=== PATIENT | female | born 1995 | race Caucasian/White ===

== ENCOUNTER 2017-03-02 22:04 | Emergency (ER) | payer OTHER ==
[2017-03-02] MEDS ORDERED: Morphine 4 MG/ML VIAL ONE (22:46)
[2017-03-02 23:08] LABS: BASO # 0.1 K/uL (0.0-0.2); BASO % 0.6 % (0.0-2.0); EOS # 0.3 K/uL (0.0-0.7); EOS % 3.4 % (0.0-4.0); HEMATOCRIT 35.2 % (34.0-47.0); LYMPH # 2.6 K/uL (1.0-4.3); LYMPH % 25.7 % (20.0-40.0); MEAN CORPUSCULAR HEMOGLOBIN 28.7 pg (27.0-31.0); MEAN CORPUSCULAR HGB CONC 33.4 g/dL (33.0-37.0); MEAN PLATELET VOLUME 10.9 fL (7.2-11.7); MONO # 0.7 K/uL (0.0-0.8); MONO % 6.5 % (0.0-10.0); RED CELL DISTRIBUTION WIDTH 14.2 % (11.5-14.5)
[2017-03-02 23:13] LABS: CHLORIDE 98 mmol/L (98-107)
[2017-03-02 23:14] LABS: SODIUM 137 mmol/L (132-148)
[2017-03-02 23:17] LABS: ALB/GLOB RATIO 1.3 (1.0-2.1); ALKALINE PHOSPHATASE 61 U/L (38-126); ALT/SGPT 71 U/L (9-52); AST/SGOT 33 U/L (14-36); BILIRUBIN,TOTAL 0.5 mg/dL (0.2-1.3); BLOOD UREA NITROGEN 16 mg/dL (7-17); CALCIUM 9.5 mg/dl (8.6-10.4); CARBON DIOXIDE 25 mmol/L (22-30); GFR AFRICAN-AMERICAN > 60; GLUCOSE,RANDOM 101 mg/dL (65-105); TOTAL PROTEIN 7.6 g/dL (6.3-8.3)
[2017-03-03 00:04] VITALS: BP 108/70; PULSE 63; RESP 18; TEMP 98; O2SAT 100
[2017-03-03] MEDS ORDERED: Iohexol 350mg/ml 100 ML ONE (00:12)
--- NOTE | 2017-03-03 00:47 | CT ---
EXAM: CT Orbits, Sella, Posterior Fossa or Auditory System Intravenous Contrast CLINICAL HISTORY: 21 years old, female; Pain; Jaw pain and ocular pain; Left; Additional info: Left ear pain, pain to the left neck, mastoid tendern TECHNIQUE: Axial computed tomography images of the orbits, sella, posterior fossa or auditory system with intravenous contrast. This CT exam was performed using one or more of the following dose reduction techniques: automated exposure control, adjustment of the mA and/or kV according to patient size, and/or use of iterative reconstruction technique. Coronal and sagittal reformatted images were created and reviewed. CONTRAST: 100 mL of omnipaque 350 administered intravenously. COMPARISON: No relevant prior studies available. FINDINGS: Sella: Unremarkable. Mastoid air cells: No mastoid effusion. Auditory system: Mild soft tissue thickening along LEFT external auditory canal. Minimal stranding within surrounding soft tissues. Apparent small peripherally enhancing collection along LEFT external auditory canal, approximately 0.5 x 0.5 x 0.6 cm (series 2, axial image 4). No middle ear fluid. Bones/joints: No acute fracture. Soft tissues: Unremarkable. Orbits: Unremarkable as visualized. Sinuses: Moderate to extensive thickening of ethmoid sinuses. Scattered minimal mucosal thickening of remaining sinuses. IMPRESSION: 1. Probable LEFT otitis externa with possible small abscess. 2. Sinus disease. 3. Incidental/non-acute findings are described above.
--- NOTE | 2017-03-03 01:06 | C.PDOC ---
History Of Present Illness 21 year old female who presents to the ER with a complaint of left sided ear pain associated with a subjective fever for the past 4 days. Patient was seen by PMD 2 days ago and give Rx for augmentin; however, she states symptoms have worsened and now has yellow drainage from her left ear. Denies fever or difficulty hearing. Time Seen by Provider: 03/02/17 22:20 Chief Complaint (Nursing): ENT Problem History Per: Patient History/Exam Limitations: None Onset/Duration Of Symptoms: Days Current Symptoms Are (Timing): Still Present Quality (Ear): Pain W/Touch, Discharge Symptoms Have Been: Continuous Anticoagulant/Antiplatlet Use?: No Past Medical History Reviewed: Historical Data, Nursing Documentation, Vital Signs Vital Signs: Last Vital Signs Temp 98 F 03/03/17 00:03 Pulse 63 03/03/17 00:03 Resp 18 03/03/17 00:03 BP 108/70 03/03/17 00:03 Pulse Ox 100 03/03/17 05:43 - Medical History PMH: Anemia Surgical History: Appendectomy Family History: States: Unknown Family Hx - Social History Hx Alcohol Use: No Hx Substance Use: No - Immunization History Hx Tetanus Toxoid Vaccination: Yes Hx Influenza Vaccination: Yes Hx Pneumococcal Vaccination: Yes Review Of Systems Constitutional: Negative for: Fever, Chills ENT: Positive for: Ear Pain, Ear Discharge Physical Exam - Physical Exam Appears: Non-toxic, No Acute Distress Skin: Normal Color, Warm, Dry, No Rash Head: Atraumatic, Normacephalic, Tenderness (Left sided mastoid tenderness) Eye(s): bilateral: Normal Inspection, PERRL, EOMI Ear(s): Left: Other (External canal swelling with drainage, TM not visualized.) , Right: Normal Nose: Normal, No Flaring Oral Mucosa: Moist Tongue: Normal Appearing Lips: Normal Appearing Throat: Normal, No Erythema, No Exudate Neck: Normal ROM, No Midline Cervical Tenderness, No Paracervical Tenderness, Supple Chest: Symmetrical, No Tenderness Cardiovascular: Rhythm Regular, No Friction Rub, No Murmur Respiratory: Normal Breath Sounds, No Rales, No Rhonchi, No Wheezing Gastrointestinal/Abdominal: Soft, No Tenderness Extremity: Normal ROM, No Swelling Neurological/Psych: Oriented x3, Normal Speech, Normal Cognition, Normal Motor Gait: Steady ED Course And Treatment - Laboratory Results Result Diagrams: 03/02/17 23:01 03/02/17 23:01 O2 Sat by Pulse Oximetry: 100 (Room air) Pulse Ox Interpretation: Normal - CT Scan/US CT Orbits, Sella, Posterior Fossa Other Rad Studies (CT/US): Read By Radiologist, Radiology Report Reviewed CT/US Interpretation: IMPRESSION: 1. Probable LEFT otitis externa with possible small abscess. 2. Sinus disease. 3. Incidental/non-acute findings are described above. Medical Decision Making Medical Decision Making: Plan: * Morphine * CT scan of IAC as there is mild mastoid tenderness CT scan shows signs of otitis externa and no mastoiditis. Patient was instructed to continue taking the augmentin and was placed on Otic antibiotic drops. On reevaluation, patients pain has much improved; will discharge with Rx and advise to follow up with PMD. Disposition - Disposition Referrals: Rio Márquez MD [Staff Provider] - Disposition: HOME/ ROUTINE Disposition Time: 01:04 Condition: FAIR Additional Instructions: Follow up with the medical doctor within 1-2 days without fail. Return if worsened. Prescriptions: Ciprofloxacin/Dexamethasone [Ciprodex 0.3%-0.1% 7.5 Ml] 4 drop AD BID #1 bottle oxyCODONE/Acetaminophen [Percocet 5/325 mg Tab] 1 tab PO QID PRN #10 tab PRN Reason: Pain Instructions: Otitis Externa (ED) Forms: [facility] (Salvadorean) - Clinical Impression Clinical Impression: Otitis externa - Scribe Statement The provider has reviewed the documentation as recorded by the Laurenibmanjinder Gomez All medical record entries made by the Laurenibmanjinder were at my direction and personally dictated by me. I have reviewed the chart and agree that the record accurately reflects my personal performance of the history, physical exam, medical decision making, and the department course for this patient. I have also personally directed, reviewed, and agree with the discharge instructions and disposition.
== END 2017-03-03 01:10 | disposition home or self-care (01) ==
LOC: C.ER 22:04
DX: H60.92 Unspecified otitis externa, left ear (principal)
CPT/HCPCS: 70481; 80053; 85025; 96374; 99283; J2270; Q9967

== ENCOUNTER 2017-10-21 00:44 | Emergency (ER) | payer MEDICAID, OTHER ==
[2017-10-21 00:47] VITALS: TEMP 98.6
[2017-10-21] MEDS ORDERED: Morphine 4 MG/ML VIAL ONE (00:50)
--- NOTE | 2017-10-21 00:57 | C.PDOC ---
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 Patient reports she had similar pain 3 years ago and has not had any since. Patient states she was awake and pain did not wake her from sleep. Patient denies vomit , diarrhea, back pain. Time Seen by Provider: 10/21/17 00:56 Chief Complaint (Nursing): Abdominal Pain History Per: Patient History/Exam Limitations: no limitations Onset/Duration Of Symptoms: Hrs Current Symptoms Are (Timing): Still Present Severity: Moderate Location Of Pain/Discomfort: Diffuse Radiation Of Pain To:: None Quality Of Discomfort: "Pain" Associated Symptoms: Nausea Exacerbating Factors: None Alleviating Factors: None Recent travel outside of the [place]: No Additional History Per: Patient Abnormal Vaginal Bleeding: No Past Medical History Reviewed: Historical Data, Nursing Documentation, Vital Signs Vital Signs: Last Vital Signs Temp 98.6 F 10/21/17 00:47 Pulse 81 10/21/17 04:11 Resp 17 10/21/17 04:11 BP 136/74 10/21/17 04:11 Pulse Ox 100 10/21/17 05:22 - Medical History PMH: Anemia, Asthma, Pneumonia Surgical History: Appendectomy Family History: States: Unknown Family Hx - Social History Hx Alcohol Use: No Hx Substance Use: No - Immunization History Hx Tetanus Toxoid Vaccination: Yes Hx Influenza Vaccination: Yes Hx Pneumococcal Vaccination: Yes Review Of Systems Constitutional: Negative for: Fever, Chills Cardiovascular: Negative for: Chest Pain Respiratory: Negative for: Cough, Shortness of Breath Gastrointestinal: Positive for: Nausea, Abdominal Pain. Negative for: Vomiting Skin: Negative for: Rash Neurological: Negative for: Weakness, Numbness Physical Exam - Physical Exam Appears: Non-toxic, In Acute Distress, Other (groaning, moaning ) Skin: Normal Color, Warm, Dry Head: Atraumatic, Normacephalic Eye(s): bilateral: Normal Inspection Nose: No Discharge Oral Mucosa: Moist Neck: Normal ROM, Supple Chest: Symmetrical Cardiovascular: Rhythm Regular, No Murmur Respiratory: Normal Breath Sounds, No Rales, No Rhonchi, No Wheezing Gastrointestinal/Abdominal: Bowel Sounds (active), Soft, Tenderness (Diffuse upper abdomen), Guarding (epigastric area), No Rebound Back: No CVA Tenderness Extremity: Normal ROM, No Tenderness, No Swelling Pulses: Left Dorsalis Pedis: Normal, Right Dorsalis Pedis: Normal Neurological/Psych: Oriented x3 Gait: Steady ED Course And Treatment - Laboratory Results Result Diagrams: 10/21/17 01:08 10/21/17 01:08 O2 Sat by Pulse Oximetry: 100 (On RA) Pulse Ox Interpretation: Normal - CT Scan/US Abdomen US Other Rad Studies (CT/US): Read By Radiologist, Radiology Report Reviewed CT/US Interpretation: EXAM: US Abdomen Limited, Right Upper Quadrant. EXAM DATE/TIME: 10/21/2017 1:18 AM. CLINICAL HISTORY: 22 years old, female; Pain; Abdominal pain; Epigastric; Additional info: Ruq pain. TECHNIQUE: Real-time ultrasound of the right upper quadrant with image documentation. COMPARISON: No relevant prior studies available. FINDINGS: Gallbladder: Contains multiple small shadowing gallstones. No significant gallbladder wall thickening. noted. No evidence of pericholecystic fluid. Reportedly negative sonographic Christy's sign. Common bile duct: Does not appear abnormally dilated, measuring less than 6 mm in diameter. Liver: Mildly enlarged, measuring 18.7 cm in length. Otherwise within normal limits in appearance. Normal flow seen in the main portal vein on color and Doppler imaging. Pancreas: Imaged portions appear unremarkable. Pancreatic tail is obscured by bowel gas. Right kidney: Within normal limits in appearance. Measures 11.3 cm in length. No evidence of. hydronephrosis.IMPRESSION: Gallstones, with no evidence of acute cholecystitis. Mild hepatomegaly. Otherwise negative exam. See above for remaining findings. Thank you for allowing us to participate in the care of your patient. Dictated and Authenticated by: Nery Ambriz MD. 10/21/2017 3: 38 AM Eastern Time ([place] & [place]) Medical Decision Making Medical Decision Making: Impression: gastritis, GERD Plan: * Labs * Dilaudid 1 mg IVP * Morphine 4 mg IVP * UA * Abdomen US Disposition - Disposition Referrals: Jersey Diaz MD [Staff Provider] - Lian Russo MD [Family Provider] - Disposition: HOME/ ROUTINE Disposition Time: 05:23 Condition: FAIR Prescriptions: oxyCODONE/Acetaminophen [Percocet 5/325 mg Tab] 1 ea PO QID PRN #12 tab PRN Reason: Pain, Mild (1-3) Instructions: Gallstones Forms: [facility] (Maori) Print Language: NAMIBIAN - Clinical Impression Clinical Impression: Biliary colic - Scribe Statement The provider has reviewed the documentation as recorded by the Scribe Lyndon Bagley All medical record entries made by the Scribe were at my direction and personally dictated by me. I have reviewed the chart and agree that the record accurately reflects my personal performance of the history, physical exam, medical decision making, and the department course for this patient. I have also personally directed, reviewed, and agree with the discharge instructions and disposition.
[2017-10-21] MEDS ORDERED: HYDROmorphone 1 mg/ml ISec IVP STA (00:58)
[2017-10-21] MEDS ORDERED: HYDROmorphone 1 mg/ml ISec ONE ×2 (01:10→03:57)
[2017-10-21 01:18] LABS: BASO % 0.4 % (0.0-2.0); EOS # 0.2 K/uL (0.0-0.7); EOS % 2.9 % (0.0-4.0); HEMOGLOBIN 13.1 g/dL (11.0-16.0); LYMPH # 2.8 K/uL (1.0-4.3); LYMPH % 37.4 % (20.0-40.0); MEAN CELL VOLUME 86.1 fL (81.0-99.0); MEAN CORPUSCULAR HEMOGLOBIN 29.6 pg (27.0-31.0); MEAN CORPUSCULAR HGB CONC 34.4 g/dL (33.0-37.0); MEAN PLATELET VOLUME 10.8 fL (7.2-11.7); MONO # 0.6 K/uL (0.0-0.8); MONO % 7.8 % (0.0-10.0); NEUT # 3.9 K/uL (1.8-7.0); NEUT % 51.5 % (50.0-75.0); NRBC % 0.1 % (0.0-2.0); RBC 4.44 Mil/uL (3.80-5.20); RED CELL DISTRIBUTION WIDTH 14.1 % (11.5-14.5); WHITE BLOOD COUNT 7.5 K/uL (4.8-10.8)
[2017-10-21 01:27] LABS: ALB/GLOB RATIO 1.4 (1.0-2.1); ALBUMIN 4.9 g/dL (3.5-5.0); ALT/SGPT 31 U/L (9-52); AST/SGOT 21 U/L (14-36); BLOOD UREA NITROGEN 8 mg/dL (7-17); CALCIUM 9.4 mg/dl (8.6-10.4); GFR AFRICAN-AMERICAN > 60; GFR NON-AFRICAN AMERICAN > 60; LIPASE 111 U/L (23-300)
[2017-10-21] MEDS ORDERED: Aluminum Hydroxide/Magnesium Hydroxide Susp (30 mL) PO STA (01:39)
[2017-10-21] MEDS ORDERED: Aluminum Hydroxide/Magnesium Hydroxide Susp (30 mL) ONE (01:52)
[2017-10-21 02:06] LABS: HCG,QUALITATIVE URINE NEGATIVE (NEGATIVE); SQUAMOUS EPITHIAL 2 /hpf (0-5); URINE BACTERIA RARE (<OCC); URINE BILIRUBIN NEGATIVE (NEGATIVE); URINE BLOOD NEGATIVE (NEGATIVE); URINE CLARITY Hazy (Clear); URINE COLOR Yellow (YELLOW); URINE GLUCOSE (UA) NORMAL (Normal); URINE PROTEIN NEGATIVE (NEGATIVE); URINE UROBILINOGEN NORMAL mg/dL (0.2-1.0)
[2017-10-21 02:08] LABS: URINE LEUKOCYTE ESTERASE 1+ Leu/uL (Negative)
--- NOTE | 2017-10-21 03:39 | US ---
EXAM: US Abdomen Limited, Right Upper Quadrant EXAM DATE/TIME: 10/21/2017 1:18 AM CLINICAL HISTORY: 22 years old, female; Pain; Abdominal pain; Epigastric; Additional info: Ruq pain TECHNIQUE: Real-time ultrasound of the right upper quadrant with image documentation. COMPARISON: No relevant prior studies available. FINDINGS: Gallbladder: Contains multiple small shadowing gallstones. No significant gallbladder wall thickening noted. No evidence of pericholecystic fluid. Reportedly negative sonographic Christy's sign. Common bile duct: Does not appear abnormally dilated, measuring less than 6 mm in diameter. Liver: Mildly enlarged, measuring 18.7 cm in length. Otherwise within normal limits in appearance. Normal flow seen in the main portal vein on color and Doppler imaging. Pancreas: Imaged portions appear unremarkable. Pancreatic tail is obscured by bowel gas. Right kidney: Within normal limits in appearance. Measures 11.3 cm in length. No evidence of hydronephrosis. IMPRESSION: Gallstones, with no evidence of acute cholecystitis. Mild hepatomegaly. Otherwise negative exam. See above for remaining findings.
[2017-10-21] MEDS ORDERED: HYDROmorphone 0.5 mg/0.5 ml ISec ONE (04:00)
[2017-10-21] MEDS ORDERED: HYDROmorphone 0.5 mg/0.5 ml ISec IVP STA (04:07)
[2017-10-21 04:13] VITALS: BP 136/74; PULSE 81; RESP 17
[2017-10-21 05:22] VITALS: O2SAT 100
== END 2017-10-21 04:19 | disposition home or self-care (01) ==
LOC: SUPCPDRO 00:44 → C.ER 00:44
DX: K80.50 Calculus of bile duct without cholangitis or cholecystitis without obstruction (principal)
CPT/HCPCS: 76705; 80053; 81001; 83690; 84703; 85025; 96374; 96375; 96376; 99285; J1170; J2270; J2405

== ENCOUNTER 2017-10-21 13:42 | Inpatient (IN) | payer MEDICAID ==
[2017-10-21] MEDS ORDERED: Aluminum Hydroxide/Magnesium Hydroxide Susp (30 mL) PO STA (14:30)
[2017-10-21] MEDS ORDERED: Sodium Chloride 0.9% 1,000 ML IV ONE ×2 (14:30→16:28)
[2017-10-21 14:50] LABS: BASO % 0.2 % (0.0-2.0); EOS % 0.1 % (0.0-4.0); HEMOGLOBIN 12.3 g/dL (11.0-16.0); LYMPH # 1.2 K/uL (1.0-4.3); LYMPH % 9.9 % (20.0-40.0); MEAN CELL VOLUME 86.3 fL (81.0-99.0); MEAN CORPUSCULAR HEMOGLOBIN 29.1 pg (27.0-31.0); MEAN CORPUSCULAR HGB CONC 33.7 g/dL (33.0-37.0); MEAN PLATELET VOLUME 11.3 fL (7.2-11.7); MONO # 0.7 K/uL (0.0-0.8); MONO % 5.6 % (0.0-10.0); NEUT # 10.4 K/uL (1.8-7.0); NEUT % 84.2 % (50.0-75.0); PLATELET COUNT 154 K/uL (130-400); RBC 4.24 Mil/uL (3.80-5.20); RED CELL DISTRIBUTION WIDTH 14.2 % (11.5-14.5)
[2017-10-21] MEDS ORDERED: Aluminum Hydroxide/Magnesium Hydroxide Susp (30 mL) ONE (14:50)
[2017-10-21] MEDS ORDERED: Sodium Chloride 0.9% 1,000 ML ONE ×2 (14:51→16:46)
[2017-10-21 14:59] LABS: WHITE BLOOD COUNT 12.3 K/uL (4.8-10.8)
[2017-10-21 15:12] LABS: ALB/GLOB RATIO 1.2 (1.0-2.1); ALBUMIN 4.3 g/dL (3.5-5.0); ALT/SGPT 35 U/L (9-52); AST/SGOT 25 U/L (14-36); BLOOD UREA NITROGEN 7 mg/dL (7-17); CALCIUM 9.2 mg/dl (8.6-10.4); GFR AFRICAN-AMERICAN > 60; GFR NON-AFRICAN AMERICAN > 60; LIPASE 41 U/L (23-300)
[2017-10-21 15:49] LABS: LYMPHOCYTE 9 % (20-40); MONOCYTE 8 % (0-10); NEUTROPHIL 83 % (50-75); PLATELET ESTIMATE NORMAL (NORMAL); TOTAL CELLS COUNTED 100
--- NOTE | 2017-10-21 16:01 | C.PDOC ---
History Of Present Illness 22-year-old female, PMHx includes Asthma, presents to the emergency department with complaints of epigastric pain and right-upper quadrant pain associated with nausea and several episodes of non-bloody/non-bilious vomiting. Patient was evaluated in ED last night for same complaint and discharged after being evaluated for gall stones. Patient reports that pain medication was not working at home, resulting in her returning for re-evaluation. She denies fever, chills , back pain, or any other associated symptoms. No other complaints at this time, Time Seen by Provider: 10/21/17 13:46 Chief Complaint (Nursing): Abdominal Pain History Per: Patient History/Exam Limitations: no limitations Onset/Duration Of Symptoms: Days Current Symptoms Are (Timing): Still Present Severity: Moderate Location Of Pain/Discomfort: RUQ, Epigastric Past Medical History Reviewed: Historical Data, Nursing Documentation, Vital Signs Vital Signs: Last Vital Signs Temp 98 F 10/21/17 15:40 Pulse 59 L 10/21/17 15:40 Resp 16 10/21/17 15:40 BP 130/75 10/21/17 15:40 Pulse Ox 96 10/21/17 16:42 - Medical History PMH: Anemia, Asthma, Pneumonia Surgical History: Appendectomy Family History: States: No Known Family Hx - Social History Hx Alcohol Use: No Hx Substance Use: No - Immunization History Hx Tetanus Toxoid Vaccination: Yes Hx Influenza Vaccination: Yes Hx Pneumococcal Vaccination: Yes Review Of Systems Constitutional: Negative for: Fever, Chills Cardiovascular: Negative for: Chest Pain Respiratory: Negative for: Shortness of Breath Gastrointestinal: Positive for: Nausea, Vomiting, Abdominal Pain. Negative for : Diarrhea, Hematochezia, Hematemesis Genitourinary: Negative for: Dysuria, Frequency, Hematuria, Vaginal Discharge, Vaginal Bleeding Musculoskeletal: Negative for: Back Pain Skin: Negative for: Rash Neurological: Negative for: Weakness, Numbness, Headache, Dizziness Physical Exam - Physical Exam Appears: Non-toxic, No Acute Distress Skin: Normal Color, Warm, Dry, No Rash Head: Normacephalic Eye(s): bilateral: PERRL Nose: Normal Oral Mucosa: Moist Lips: Normal Appearing Neck: Normal ROM Chest: Symmetrical Cardiovascular: Rhythm Regular, No Murmur Respiratory: Normal Breath Sounds, No Accessory Muscle Use Gastrointestinal/Abdominal: Soft, Tenderness (Epigastric, RUQ. ), No Guarding, No Rebound Extremity: Normal ROM, No Deformity, No Swelling Neurological/Psych: Oriented x3, Normal Speech ED Course And Treatment - Laboratory Results Result Diagrams: 10/21/17 14:47 10/21/17 14:47 O2 Sat by Pulse Oximetry: 96 (RA) Pulse Ox Interpretation: Normal Medical Decision Making Medical Decision Making: Plan: * Pepcid, Maalox, Morphine, Zofran, IVF * Labs * Reassess and Disposition Disposition - Disposition Disposition: HOSPITALIZED Disposition Time: 16:41 Condition: GUARDED - Clinical Impression Clinical Impression: Biliary colic, Abdominal pain - Scribe Statement The provider has reviewed the documentation as recorded by the Scribe (Bobo Bob) All medical record entries made by the Scribe were at my direction and personally dictated by me. I have reviewed the chart and agree that the record accurately reflects my personal performance of the history, physical exam, medical decision making, and the department course for this patient. I have also personally directed, reviewed, and agree with the discharge instructions and disposition. Decision To Admit - Pt Status Changed To: Hospital Disposition Of: Inpatient - Admit Certification Admit to Inpatient:: After my assessment, the patient will require hospitalization for at least two midnights. This is because of the severity of symptoms shown, intensity of services needed, and/or the medical risk in this patient being treated as an outpatient. - InPatient: Physician Admission Certification:: gallstones, abdominal pain, elevated WBC count - . Bed Request Type: Regular Admitting Physician: Jose Schumacher Jr. Patient Diagnosis: Biliary colic, Abdominal pain
[2017-10-21] MEDS ORDERED: Piperacill/Tazo 3.375gm in Dex 3.375 GM/50 ML BAG IVPB STA (16:32)
[2017-10-21] MEDS ORDERED: Morphine 4 MG/ML VIAL ONE (16:46)
[2017-10-21 17:07] LABS: VENOUS BLOOD GAS BASE EXCESS -2.4 mmol/L (0.0-2.0); VENOUS BLOOD GAS PCO2 45 mmHg (40-60); VENOUS BLOOD GAS PO2 21 mm/Hg (30-55); VENOUS BLOOD PH 7.33 (7.32-7.43)
[2017-10-21 17:08] LABS: INR 1.2; PROTHROMBIN TIME 13.3 SECONDS (9.7-12.2)
--- NOTE | 2017-10-21 17:11 | CP.PCM.HP ---
History of Present Illness - History of Present Illness History of Present Illness: CC: abdominal arce and vomiting 22-year-old female, PMHx includes Asthma, presents to the emergency department with complaints of epigastric pain and right-upper quadrant pain associated with nausea and several episodes of nonbloody vomiting. Patient was evaluated in ED last night for same complaint and discharged after having found to have gallstones. Patient states she was not tolerating pain well and has been vomiting since 5 am. Patient denies fever, chills, back pain, or any other associated symptoms. No other complaints at this time. PMH: none PSH: C sections x 2 (one with complication of intra-abdominal bleeding), open appendectomy Social History: Family History: cholelithiasis Present on Admission - Present on Admission Any Indicators Present on Admission: No History of DVT/PE: No History of Uncontrolled Diabetes: No Urinary Catheter: No Decubitus Ulcer Present: No Past Patient History - Infectious Disease Hx of Infectious Diseases: None - Past Social History Smoking Status: Never Smoked - PULMONARY Hx Asthma: Yes Hx Pneumonia: Yes - HEMATOLOGICAL/ONCOLOGICAL Hx Anemia: Yes - GASTROINTESTINAL Hx Ulcer: Yes - PSYCHIATRIC Hx Substance Use: No - SURGICAL HISTORY Hx Appendectomy: Yes - ANESTHESIA Hx Anesthesia: Yes Hx Anesthesia Reactions: No Hx Malignant Hyperthermia: No Meds Allergies/Adverse Reactions: Allergies Allergy/AdvReac Type Severity Reaction Status Date / Time No Known Allergies Allergy Verified 10/21/17 13:55 Physical Exam - Head Exam Head Exam: ATRAUMATIC, NORMAL INSPECTION, NORMOCEPHALIC - Eye Exam Eye Exam: EOMI, Normal appearance Pupil Exam: NORMAL ACCOMODATION, PERRL - ENT Exam ENT Exam: Mucous Membranes Dry, Normal Oropharynx - Neck Exam Neck exam: Positive for: Full Rom, Normal Inspection. Negative for: Lymphadenopathy, Tenderness, Thyromegaly - Respiratory Exam Respiratory Exam: Clear to Auscultation Bilateral, NORMAL BREATHING PATTERN. absent: Respiratory Distress - Cardiovascular Exam Cardiovascular Exam: REGULAR RHYTHM, +S1, +S2 - GI/Abdominal Exam GI & Abdominal Exam: Organomegaly, Soft, Tenderness (midepigastric right upper quadrant, left upper quadrant). absent: Firm, Guarding, Hypoactive Bowel Sounds , Pulsatile Mass, Rebound, Rigid - Extremities Exam Extremities exam: Positive for: full ROM, normal inspection. Negative for: pedal edema - Back Exam Back exam: FULL ROM, NORMAL INSPECTION - Neurological Exam Neurological exam: CN II-XII Intact, Normal Gait, Oriented x3, Reflexes Normal - Psychiatric Exam Psychiatric exam: Normal Affect, Normal Mood - Skin Skin Exam: Dry, Intact, Normal Color, Warm Results - Vital Signs Recent Vital Signs: Last Vital Signs Temp 97.6 F 10/21/17 16:59 Pulse 59 L 10/21/17 15:40 Resp 16 10/21/17 15:40 BP 130/75 10/21/17 15:40 Pulse Ox 96 10/21/17 16:43 - Labs Result Diagrams: 10/22/17 06:57 10/22/17 06:57 Labs: Laboratory Results - last 24 hr 10/21/17 10/21/17 10/21/17 14:47 14:47 17:04 WBC 12.3 H D RBC 4.24 Hgb 12.3 Hct 36.6 MCV 86.3 MCH 29.1 MCHC 33.7 RDW 14.2 Plt Count 154 MPV 11.3 Neut % (Auto) 84.2 H Lymph % (Auto) 9.9 L [place] % (Auto) 5.6 Eos % (Auto) 0.1 Baso % (Auto) 0.2 Neut # (Auto) 10.4 H Lymph # (Auto) 1.2 [place] # (Auto) 0.7 Eos # (Auto) 0.0 Baso # (Auto) 0.0 Neutrophils % (Manual) 83 H Lymphocytes % (Manual) 9 L Monocytes % (Manual) 8 Platelet Estimate Normal pO2 21 L VBG pH 7.33 VBG pCO2 45 VBG HCO3 21.2 VBG Total CO2 25.1 VBG O2 Sat (Calc) 39.7 L VBG Base Excess -2.4 L VBG Potassium 3.5 L Glucose 95 Lactate 0.9 Sodium 138 138.0 Potassium 3.7 Chloride 100 106.0 Carbon Dioxide 22 Anion Gap 19 BUN 7 Creatinine 0.7 Est GFR ( Amer) > 60 Est GFR (Non-Af Amer) > 60 Random Glucose 103 Calcium 9.2 Total Bilirubin 0.8 AST 25 ALT 35 Alkaline Phosphatase 45 Total Protein 7.8 Albumin 4.3 Globulin 3.5 Albumin/Globulin Ratio 1.2 Lipase 41 Venous Blood Potassium 3.5 L Assessment & Plan - Assessment and Plan (Free Text) Assessment: cholecystitis v biliary colic v gastritis Cholelithiasis, no elevated LFTs vitals stable, no elevated lactate, no elevated LFTs, midepigastric pain, vomiting Zosyn 3.375 gm Q6H NS @ 100cc/hr Abdominal US: 6mm gallbladder wall thickening, trace pericholecystic fluid and cholelithiasis. No choledocholithiasis. Mild hepatomegaly f/u CT abdomen pelvis Doreen Elaine DO PGY1 discussed with Dr. Schumacher - Date & Time Date: 10/21/17 Time: 18:08
[2017-10-21] MEDS ORDERED: Iodixanol 320 MG/ML 100 ML BOTTLE IV ONE (17:38)
--- NOTE | 2017-10-21 17:41 | US ---
HISTORY: urq pain, gallstones dx yesterday now with elevate COMPARISON: 10/21/2017 at 2:35 a.m. TECHNIQUE: Sonographic evaluation of the right upper quadrant of the abdomen. FINDINGS: LIVER: Measures 19 point a cm in length. Normal echogenicity of the liver parenchyma. No mass. No intrahepatic bile duct dilatation. GALLBLADDER: Cholelithiasis. Mural thickening up to 6 mm. Trace pericholecystic fluid. Negative sonographic Christy sign. Findings equivocal for cholecystitis. These findings do represent interval change, specifically regarding the appearance of the gallbladder wall, when compared to the earlier examination of the same date. COMMON BILE DUCT: Measures 4 mm. No stones. No dilatation. PANCREAS: Unremarkable as visualized. No mass. No ductal dilatation. RIGHT KIDNEY: Measures 11.7 cm in length. Normal echogenicity. No calculus, mass, or hydronephrosis. AORTA: No aneurysmal dilatation. IVC: Unremarkable. OTHER FINDINGS: None . IMPRESSION: Cholelithiasis with thickened gallbladder wall and trace pericholecystic fluid but negative sonographic Christy's sign. Equivocal findings for cholecystitis but representing interval change from earlier examination of the same date. . Mild hepatomegaly.
--- NOTE | 2017-10-21 17:44 | RAD ---
HISTORY: Sepsis Patient COMPARISON: No prior. FINDINGS: LUNGS: No active pulmonary disease. PLEURA: No significant pleural effusion identified, no pneumothorax apparent. CARDIOVASCULAR: Normal. OSSEOUS STRUCTURES: No significant abnormalities. VISUALIZED UPPER ABDOMEN: Normal. OTHER FINDINGS: None. IMPRESSION: No active disease.
[2017-10-21] MEDS: Piperacill/Tazo 3.375gm in Dex 3.375 GM/50 ML BAG IVPB SCH ×2 (18:30→23:45)
--- NOTE | 2017-10-21 18:32 | CT ---
PROCEDURE: CT Abdomen and Pelvis with contrast HISTORY: abdominal pain, elevated wbc count COMPARISON: None. TECHNIQUE: Contrast dose: 100 mL Visipaque 320 Radiation dose: Total exam DLP = 865.63 mGy-cm. This CT exam was performed using one or more of the following dose reduction techniques: Automated exposure control, adjustment of the mA and/or kV according to patient size, and/or use of iterative reconstruction technique. FINDINGS: LOWER THORAX: Unremarkable. LIVER: Mild hepatomegaly. The liver measures approximately 21 cm craniocaudal. No mass. Periportal edema noted common nonspecific. No intrahepatic biliary ductal dilatation. GALLBLADDER AND BILE DUCTS: The gallbladder is significant for mural thickening and trace pericholecystic fluid. There is a small amount of gas seen within the gallbladder lumen. This is concerning for infection with a gas producing organism. No calcified gallstones are identified. There is also a small amount of gas seen within the cystic duct. PANCREAS: Unremarkable. No gross lesion or ductal dilatation. SPLEEN: Mild splenomegaly. The spleen measures 13 cm in greatest dimension. No mass. ADRENALS: Unremarkable. No mass. KIDNEYS AND URETERS: Unremarkable. No hydronephrosis. No solid mass. VASCULATURE: Unremarkable. No aortic aneurysm. BOWEL: Unremarkable. No obstruction. No gross mural thickening. APPENDIX: Not identified. No secondary findings PERITONEUM: Unremarkable. No free fluid. No free air. LYMPH NODES: Unremarkable. No enlarged lymph nodes. BLADDER: Suboptimally distended. No gross abnormality. REPRODUCTIVE: Intrauterine device noted within uterus. BONES: No acute fracture. OTHER FINDINGS: None. IMPRESSION: Findings concerning for acute cholecystitis with gas producing organism. Mild hepatosplenomegaly. Nonspecific periportal edema. No additional abnormality. . The findings in this examination were discussed by telephone with Dr. Machado at 6:30 p.m. on 10/21/2017.
[2017-10-21] MEDS ORDERED: Sodium Chloride 0.9% 1,000 ML IV SCH (18:45)
[2017-10-21] MEDS: Lactated Ringer's 1,000 ML IV SCH (19:00)
--- NOTE | 2017-10-21 21:17 | CP.PCM.CON ---
History of Present Illness - History of Present Illness History of Present Illness: General Surgery - Dr. Orozco 22 F w/ hx of asthma and iron-def. anemia, presenting w/ RUQ abdominal pain x2 days. Pt states the pain began yesterday afternoon. She came to the ED and was found to have gallstones. Pt felt an improvement in her pain after receiving Morphine and was sent home. Today the pain gradually became worse so she returned to the ED. She describes it as sharp/stabbing RUQ and epigastric pain, worse with palpation or deep breath, non-radiating, mod-severe. She admits to nausea and vomited several times earlier today, non-bloody/non- bilious. She denies any Fevers, Chills, SOB, chest pain, Dysuria, Hematuria, Diarrhea. PMH - Asthma, MADYSON, Blood transfusions for bleeding after 2nd PSH - x2, Open Appendectomy as child NKDA VSS. Labs significant for WBC 12.3, LFTs wnl. U/S and CT showing gallstones, thickened GB wall with small amt. intraluminal air, trace pericholecystic fluid. Surgery was consulted for acute cholecystitis. Review of Systems - Review of Systems All systems: reviewed and no additional remarkable complaints except (as per HPI ) Past Patient History - Infectious Disease Hx of Infectious Diseases: None - Past Medical History & Family History Past Medical History?: Yes - Past Social History Smoking Status: Never Smoked - PULMONARY Hx Asthma: Yes Hx Pneumonia: Yes - HEMATOLOGICAL/ONCOLOGICAL Hx Anemia: Yes - MUSCULOSKELETAL/RHEUMATOLOGICAL Hx Falls: No - GASTROINTESTINAL Hx Ulcer: Yes - PSYCHIATRIC Hx Substance Use: No - SURGICAL HISTORY Hx Appendectomy: Yes - ANESTHESIA Hx Anesthesia: Yes Hx Anesthesia Reactions: No Hx Malignant Hyperthermia: No Has any member of the family had a problem w/ anesthesia?: No Meds Allergies/Adverse Reactions: Allergies Allergy/AdvReac Type Severity Reaction Status Date / Time No Known Allergies Allergy Verified 10/21/17 13:55 - Medications Medications: Current Medications Piperacillin Sod/Tazobactam Sod (Zosyn 3.375 Gm Iv Premix) 3.375 gm in 50 mls @ 100 mls/hr IVPB Q6H ROXANA PRN Reason: Protocol Stop: 10/28/17 17:31 Lactated Ringer's (Lactated Ringer's) 1,000 mls @ 150 mls/hr IV .Q6H40M ROXANA Pneumococcal Polyvalent Vaccine (Pneumovax 23 Vaccine) 0.5 ml IM .ONCE ONE Stop: 10/23/17 10:01 Physical Exam - Constitutional Appears: No Acute Distress - Head Exam Head Exam: ATRAUMATIC, NORMAL INSPECTION, NORMOCEPHALIC - Eye Exam Eye Exam: EOMI, Normal appearance - Respiratory Exam Respiratory Exam: NORMAL BREATHING PATTERN. absent: Respiratory Distress - GI/Abdominal Exam GI & Abdominal Exam: Guarding, Soft, Tenderness (RUQ, + [place]). absent: Distended, Firm, Hernia, Rebound, Rigid - Neurological Exam Neurological exam: Alert, Oriented x3 - Psychiatric Exam Psychiatric exam: Normal Affect, Normal Mood - Skin Skin Exam: Dry, Intact Results - Vital Signs Recent Vital Signs: Last Vital Signs Temp 98.7 F 10/21/17 19:19 Pulse 65 10/21/17 19:19 Resp 20 10/21/17 19:19 BP 130/79 10/21/17 19:19 Pulse Ox 98 10/21/17 19:19 - Labs Result Diagrams: 10/21/17 14:47 10/21/17 14:47 Labs: Laboratory Results - last 24 hr 10/21/17 10/21/17 10/21/17 14:47 14:47 16:58 WBC 12.3 H D RBC 4.24 Hgb 12.3 Hct 36.6 MCV 86.3 MCH 29.1 MCHC 33.7 RDW 14.2 Plt Count 154 MPV 11.3 Neut % (Auto) 84.2 H Lymph % (Auto) 9.9 L [place] % (Auto) 5.6 Eos % (Auto) 0.1 Baso % (Auto) 0.2 Neut # (Auto) 10.4 H Lymph # (Auto) 1.2 [place] # (Auto) 0.7 Eos # (Auto) 0.0 Baso # (Auto) 0.0 Neutrophils % (Manual) 83 H Lymphocytes % (Manual) 9 L Monocytes % (Manual) 8 Platelet Estimate Normal PT 13.3 H INR 1.2 pO2 VBG pH VBG pCO2 VBG HCO3 VBG Total CO2 VBG O2 Sat (Calc) VBG Base Excess VBG Potassium Glucose Lactate Sodium 138 Potassium 3.7 Chloride 100 Carbon Dioxide 22 Anion Gap 19 BUN 7 Creatinine 0.7 Est GFR ( Amer) > 60 Est GFR (Non-Af Amer) > 60 Random Glucose 103 Calcium 9.2 Phosphorus Magnesium Total Bilirubin 0.8 AST 25 ALT 35 Alkaline Phosphatase 45 Total Protein 7.8 Albumin 4.3 Globulin 3.5 Albumin/Globulin Ratio 1.2 Lipase 41 Venous Blood Potassium 10/21/17 10/21/17 16:58 17:04 WBC RBC Hgb Hct MCV MCH MCHC RDW Plt Count MPV Neut % (Auto) Lymph % (Auto) [place] % (Auto) Eos % (Auto) Baso % (Auto) Neut # (Auto) Lymph # (Auto) [place] # (Auto) Eos # (Auto) Baso # (Auto) Neutrophils % (Manual) Lymphocytes % (Manual) Monocytes % (Manual) Platelet Estimate PT INR pO2 21 L VBG pH 7.33 VBG pCO2 45 VBG HCO3 21.2 VBG Total CO2 25.1 VBG O2 Sat (Calc) 39.7 L VBG Base Excess -2.4 L VBG Potassium 3.5 L Glucose 95 Lactate 0.9 Sodium 138.0 Potassium Chloride 106.0 Carbon Dioxide Anion Gap BUN Creatinine Est GFR ( Amer) Est GFR (Non-Af Amer) Random Glucose Calcium Phosphorus 3.8 Magnesium 1.7 Total Bilirubin AST ALT Alkaline Phosphatase Total Protein Albumin Globulin Albumin/Globulin Ratio Lipase Venous Blood Potassium 3.5 L Assessment & Plan - Assessment and Plan (Free Text) Assessment: 22 yo F w/ acute cholecystitis NPO, IVF hydration IV ABx, Pain control, Anti-emetics prn Risks/Benefits of surgery discussed with patient and family at bedside Plan for Cholecystectomy 10/22 JOSSELINE Orozco
[2017-10-22] MEDS: Lactated Ringer's 1,000 ML IV SCH ×5 (01:40→23:00)
[2017-10-22] MEDS: Morphine 4 MG/ML VIAL IVP PRN ×4 (04:27→21:07)
[2017-10-22] MEDS: Piperacill/Tazo 3.375gm in Dex 3.375 GM/50 ML BAG IVPB SCH ×4 (05:32→22:58)
[2017-10-22 06:25] LABS: SQUAMOUS EPITHIAL 4 /hpf (0-5); URINE BACTERIA RARE (<OCC); URINE BILIRUBIN NEGATIVE (NEGATIVE); URINE CLARITY Hazy (Clear); URINE COLOR Yellow (YELLOW); URINE GLUCOSE (UA) NORMAL (Normal); URINE LEUKOCYTE ESTERASE 3+ Leu/uL (Negative); URINE PROTEIN NEGATIVE (NEGATIVE); URINE UROBILINOGEN NORMAL mg/dL (0.2-1.0)
[2017-10-22 06:26] LABS: URINE BLOOD TRACE (NEGATIVE)
[2017-10-22 07:13] LABS: BASO % 0.2 % (0.0-2.0); EOS # 0.1 K/uL (0.0-0.7); EOS % 0.9 % (0.0-4.0); HEMOGLOBIN 11.8 g/dL (11.0-16.0); LYMPH # 1.4 K/uL (1.0-4.3); LYMPH % 19.7 % (20.0-40.0); MEAN CELL VOLUME 86.8 fL (81.0-99.0); MEAN CORPUSCULAR HEMOGLOBIN 29.9 pg (27.0-31.0); MEAN CORPUSCULAR HGB CONC 34.4 g/dL (33.0-37.0); MEAN PLATELET VOLUME 11.3 fL (7.2-11.7); MONO # 0.7 K/uL (0.0-0.8); MONO % 9.1 % (0.0-10.0); NEUT # 5.1 K/uL (1.8-7.0); NEUT % 70.1 % (50.0-75.0); NRBC % 0.2 % (0.0-2.0); RBC 3.96 Mil/uL (3.80-5.20); RED CELL DISTRIBUTION WIDTH 14.3 % (11.5-14.5); WHITE BLOOD COUNT 7.3 K/uL (4.8-10.8)
[2017-10-22 07:39] LABS: ALB/GLOB RATIO 1.2 (1.0-2.1); ALBUMIN 3.6 g/dL (3.5-5.0); ALT/SGPT 51 U/L (9-52); AST/SGOT 42 U/L (14-36); BLOOD UREA NITROGEN 3 mg/dL (7-17); CALCIUM 8.6 mg/dl (8.6-10.4); GFR AFRICAN-AMERICAN > 60; GFR NON-AFRICAN AMERICAN > 60
[2017-10-22] MEDS ORDERED: Midazolam 2 MG/2 ML VIAL ONE (08:44)
[2017-10-22] MEDS ORDERED: Propofol 10 mg/ml Inj (20 ML) ONE (08:44)
[2017-10-22] MEDS ORDERED: Lactated Ringer's 1,000 ML IV ONE (09:00)
[2017-10-22] MEDS ORDERED: Rocuronium 10 mg/ml (5 ml) ONE (09:02)
[2017-10-22] MEDS ORDERED: Succinylcholine Chloride 20 mg/ml Syr (5 ml) IV ONE (09:02)
--- NOTE | 2017-10-22 09:26 | CP.PCM.PN ---
<Doreen Elaine - Last Filed: 10/22/17 16:33> Subjective - Date & Time of Evaluation Date of Evaluation: 10/22/17 Time of Evaluation: 09:24 - Subjective Subjective: Progress note for Dr. Schumacher Patient seen and examined at bedside. Patient to have cholecystectomy 10/22/17 at around noon. Patient states she still has abdominal pain,. Patient denies nausea, vomiting, fever, chills, diarrhea, vomiting. Objective - Vital Signs/Intake and Output Vital Signs (last 24 hours): Temp Pulse Resp BP Pulse Ox 98.3 F 77 20 115/73 97 10/22/17 08:09 10/22/17 08:09 10/22/17 08:09 10/22/17 08:09 10/22/17 08:09 - Medications Medications: Current Medications Piperacillin Sod/Tazobactam Sod (Zosyn 3.375 Gm Iv Premix) 3.375 gm in 50 mls @ 100 mls/hr IVPB Q6H ROXANA PRN Reason: Protocol Stop: 10/28/17 17:31 Last Admin: 10/22/17 05:32 Dose: 100 mls/hr Lactated Ringer's (Lactated Ringer's) 1,000 mls @ 150 mls/hr IV .Q6H40M ROXANA Last Admin: 10/22/17 05:05 Dose: 150 mls/hr Morphine Sulfate (Morphine) 4 mg IVP Q4 PRN PRN Reason: Pain, moderate (4-7) Last Admin: 10/22/17 04:27 Dose: 4 mg Ondansetron HCl (Zofran Inj) 4 mg IVP Q4H PRN PRN Reason: Nausea/Vomiting Pneumococcal Polyvalent Vaccine (Pneumovax 23 Vaccine) 0.5 ml IM .ONCE ONE Stop: 10/23/17 10:01 - Labs Labs: 10/22/17 06:57 10/22/17 06:57 PT 13.3 SECONDS (9.7-12.2) H 10/21/17 16:58 INR 1.2 10/21/17 16:58 - Constitutional Appears: Non-toxic, No Acute Distress - Head Exam Head Exam: ATRAUMATIC, NORMAL INSPECTION, NORMOCEPHALIC - Eye Exam Eye Exam: EOMI, Normal appearance Pupil Exam: NORMAL ACCOMODATION, PERRL - ENT Exam ENT Exam: Mucous Membranes Moist, Normal Exam - Neck Exam Neck Exam: Full ROM, Normal Inspection. absent: Tenderness, Thyromegaly - Respiratory Exam Respiratory Exam: Clear to Ausculation Bilateral, NORMAL BREATHING PATTERN - Cardiovascular Exam Cardiovascular Exam: REGULAR RHYTHM, +S1, +S2 - GI/Abdominal Exam GI & Abdominal Exam: Soft, Tenderness, Normal Bowel Sounds. absent: Hyperactive Bowel Sounds, Hypoactive Bowel Sounds - Extremities Exam Extremities Exam: Full ROM, Normal Capillary Refill, Normal Inspection. absent : Pedal Edema - Back Exam Back Exam: Full ROM, NORMAL INSPECTION - Neurological Exam Neurological Exam: Awake, CN II-XII Intact, Oriented x3 - Psychiatric Exam Psychiatric exam: Normal Affect, Normal Mood - Skin Skin Exam: Dry, Intact, Pallor, Warm Assessment and Plan - Assessment and Plan (Free Text) Assessment: cholecystitis s/p laparoscopic cholecystectomy 10/22/17 Cholelithiasis, no elevated LFTs vitals stable, no elevated lactate, no elevated LFTs, midepigastric pain, vomiting Zosyn 3.375 gm Q6H LR @150cc/hr Morphine 4mg IVP Q4H PRN pain Percocet 5/325 Q5H PRN pain Zofran 4mg IVP Q4H PRN Nausea Abdominal US: 6mm gallbladder wall thickening, trace pericholecystic fluid and cholelithiasis. No choledocholithiasis. Mild hepatomegaly CT abdomen pelvis: acute cholecystitis with gas producing organism. Mild hepatosplenomegaly. nonspecific periportal edema. Doreen Elaine DO PGY1 discussed with Dr. Schumacher <Jose Schumacher Jr. - Last Filed: 10/26/17 15:47> Objective - Vital Signs/Intake and Output Vital Signs (last 24 hours): Temp Pulse Resp BP Pulse Ox 99.1 F 96 H 20 116/73 97 10/23/17 16:00 10/23/17 16:00 10/23/17 16:00 10/23/17 16:00 10/23/17 16:00 - Labs Labs: 10/23/17 07:34 10/23/17 07:34 PT 13.3 SECONDS (9.7-12.2) H 10/21/17 16:58 INR 1.2 10/21/17 16:58 Attending/Attestation - Attestation I have personally seen and examined this patient.: Yes I have fully participated in the care of the patient.: Yes I have reviewed all pertinent clinical information, including history, physical exam and plan: Yes Notes (Text): 10/26/17 15:47 Agree with the resident note and plan of care
[2017-10-22] MEDS ORDERED: Iohexol 240 (50 ml) ONE (09:31)
[2017-10-22] MEDS ORDERED: HYDROmorphone 0.5 mg/0.5 ml ISec IVP PRN ×2 (10:32→10:37)
--- NOTE | 2017-10-22 10:46 | PCM.SURG1 ---
Surgeon's Initial Post Op Note - Surgeon's Notes Surgeon: Dr Orozco Asphalt Spreader Operator: Dr Elmore PGY3 Type of Anesthesia: General Endo Pre-Operative Diagnosis: acute cholecystitis Operative Findings: see report Post-Operative Diagnosis: as above Operation Performed: laparoscopic cholecystectomy. intraoperative cholangiogram Specimen/Specimens Removed: gallbladder. gallbladder fluid culture Estimated Blood Loss: EBL {In ML}: 15 Blood Products Given: N/A Drains Used: No Drains Post-Op Condition: Good Date of Surgery/Procedure: 10/22/17 Time of Surgery/Procedure: 10:46
[2017-10-22] MEDS: Oxycodone/Acetaminophen 5/325 mg Tab PO PRN ×3 (14:28→23:03)
[2017-10-22 16:03] VITALS: RESP 20
[2017-10-23] MEDS: Lactated Ringer's 1,000 ML IV SCH ×3 (00:30→07:07)
[2017-10-23] MEDS: Morphine 4 MG/ML VIAL IVP PRN ×2 (02:03→07:06)
[2017-10-23] MEDS: Oxycodone/Acetaminophen 5/325 mg Tab PO PRN ×2 (04:30→10:18)
[2017-10-23] MEDS: Piperacill/Tazo 3.375gm in Dex 3.375 GM/50 ML BAG IVPB SCH ×2 (05:04→12:03)
--- NOTE | 2017-10-23 07:12 | CP.PCM.PN ---
Subjective - Date & Time of Evaluation Date of Evaluation: 10/23/17 Time of Evaluation: 07:10 - Subjective Subjective: General Surgery: Dr Orozco Pt S&E. POD#1 s/p lap marylu. Pt reports still with pain, but different from pre-op. Now just soreness. Denies n/v, f/c. Tolerating regular diet last night. Objective - Vital Signs/Intake and Output Vital Signs (last 24 hours): Temp Pulse Resp BP Pulse Ox 98.3 F 79 20 120/71 99 10/23/17 00:00 10/23/17 00:00 10/23/17 00:00 10/23/17 00:00 10/23/17 00:00 Intake and Output: 10/23/17 10/23/17 06:59 18:59 Intake Total 1225 Balance 1225 - Medications Medications: Current Medications Docusate Sodium (Colace) 100 mg PO BID ROXANA Piperacillin Sod/Tazobactam Sod (Zosyn 3.375 Gm Iv Premix) 3.375 gm in 50 mls @ 100 mls/hr IVPB Q6H ROXANA PRN Reason: Protocol Stop: 10/28/17 17:31 Last Admin: 10/23/17 05:04 Dose: 100 mls/hr Lactated Ringer's (Lactated Ringer's) 1,000 mls @ 150 mls/hr IV .Q6H40M ROXANA Last Admin: 10/23/17 07:07 Dose: 150 mls/hr Morphine Sulfate (Morphine) 4 mg IVP Q4 PRN PRN Reason: Pain, moderate (4-7) Last Admin: 10/23/17 07:06 Dose: 4 mg Ondansetron HCl (Zofran Inj) 4 mg IVP Q4H PRN PRN Reason: Nausea/Vomiting Oxycodone/Acetaminophen (Percocet 5/325 Mg Tab) 1 tab PO Q4H PRN PRN Reason: Pain, Mild (1-3) Stop: 10/25/17 10:44 Last Admin: 10/23/17 04:30 Dose: 1 tab Pneumococcal Polyvalent Vaccine (Pneumovax 23 Vaccine) 0.5 ml IM .ONCE ONE Stop: 10/23/17 10:01 - Labs Labs: 10/22/17 06:57 03/22/18 06:57 PT 13.3 SECONDS (9.7-12.2) H 10/21/17 16:58 INR 1.2 10/21/17 16:58 - Constitutional Appears: Non-toxic, No Acute Distress - ENT Exam ENT Exam: Mucous Membranes Dry - Respiratory Exam Respiratory Exam: absent: Accessory Muscle Use, Respiratory Distress - Cardiovascular Exam Cardiovascular Exam: REGULAR RHYTHM. absent: Tachycardia - GI/Abdominal Exam GI & Abdominal Exam: Soft, Tenderness (post-op and appropriate). absent: Distended, Firm, Guarding Additional comments: dressings c/d/i - Extremities Exam Extremities Exam: absent: Pedal Edema - Neurological Exam Neurological Exam: Alert, Awake, Oriented x3 - Psychiatric Exam Psychiatric exam: Normal Affect, Normal Mood - Skin Skin Exam: Normal Color, Warm Assessment and Plan - Assessment and Plan (Free Text) Assessment: 22F POD#1 s/p lap marylu Plan: tolerating diet pain is post-operative and appropriate clear for d/c today pending blood work f/u in office in 1 week will d/w Dr Pam Elmore, PGY3
[2017-10-23 07:45] LABS: BASO % 0.1 % (0.0-2.0); EOS # 0.1 K/uL (0.0-0.7); EOS % 1.4 % (0.0-4.0); HEMOGLOBIN 11.5 g/dL (11.0-16.0); LYMPH # 1.2 K/uL (1.0-4.3); LYMPH % 12.3 % (20.0-40.0); MEAN CELL VOLUME 86.2 fL (81.0-99.0); MEAN CORPUSCULAR HEMOGLOBIN 29.7 pg (27.0-31.0); MEAN CORPUSCULAR HGB CONC 34.5 g/dL (33.0-37.0); MEAN PLATELET VOLUME 11.1 fL (7.2-11.7); MONO # 0.8 K/uL (0.0-0.8); MONO % 8.2 % (0.0-10.0); NEUT # 7.7 K/uL (1.8-7.0); NRBC % 0.1 % (0.0-2.0); RBC 3.87 Mil/uL (3.80-5.20); WHITE BLOOD COUNT 9.9 K/uL (4.8-10.8)
[2017-10-23 08:07] LABS: ALBUMIN 3.5 g/dL (3.5-5.0); BLOOD UREA NITROGEN 3 mg/dL (7-17); CALCIUM 8.5 mg/dl (8.6-10.4); GFR AFRICAN-AMERICAN > 60; GFR NON-AFRICAN AMERICAN > 60
[2017-10-23 08:08] LABS: ALB/GLOB RATIO 1.1 (1.0-2.1); ALT/SGPT 63 U/L (9-52); AST/SGOT 38 U/L (14-36)
[2017-10-23] MEDS ORDERED: Potassium Chloride 20 mEq ER Tab PO ONE (09:50)
[2017-10-23] MEDS ORDERED: Pneumococcal 23-Valent Vaccine IM ONE (10:00)
[2017-10-23] MEDS ORDERED: Influenza Vaccine 60 mcg/0.5 mL SYR (4YR UP) IM ONE (10:00)
--- NOTE | 2017-10-23 10:17 | OP ---
PROCEDURE DATE: 10/22/2017 PREOPERATIVE DIAGNOSIS: Acute cholecystitis. POSTOPERATIVE DIAGNOSIS: Acute cholecystitis. PROCEDURE: Laparoscopic cholecystectomy with C-arm cholangiogram. SURGEON: Emeka Orozco Jr., MD. DIGITAL MEDIA COORDINATOR: Dr. Elmore. ANESTHESIA ADMINISTERED BY: Jovanna Winter CRNA INDICATIONS: A 22-year-old woman admitted to hospital with severe abdominal pain. Preoperative imaging showed some air in the wall of gallbladder. OPERATIVE FINDINGS: There were some adhesions in the lower abdomen, presumably from her previous section. Rest of the intraoperative findings were unremarkable. The gallbladder was acutely inflamed and edematous. PROCEDURE: The patient was given general anesthesia, intravenous antibiotics. Venodyne boots were applied. Romeo trocar was inserted via a cutdown technique. Two additional trocars were placed. The cystic duct, cystic artery identified. A view of safety was obtained. After this had been done, we cut the cystic duct superiorly, carried out a cholangiogram which showed free flow into duodenum and visualization of hepatic radicles. Due to the timing and the manipulation of the film, we did not actually see full contrast at the region of the ampulla, but dye went freely into the duodenum and there was no evidence of any ductal dilatation or stones. The rest of the intraoperative findings were unremarkable. After this had been completed, we removed the cholangiogram catheter. We cut the cystic duct, we cut the cystic artery. We then removed the gallbladder from the liver bed, brought it out with a bag through the umbilical incision. This was closed in an airtight closure. The skin was closed subcuticular closure and Steri-Strips. Blood loss during the procedure was less than 25 mL. The operation carried out was laparoscopic cholecystectomy with C-arm cholangiogram. Emeka Orozco Jr., MD cc: Jose Schumacher MD
--- NOTE | 2017-10-23 11:33 | CP.PCM.DIS ---
Provider - Provider Date of Admission: 10/21/17 16:39 Attending physician: Jose Schumacher Jr, MD Primary care physician: Dr. Russo Consults: General surgery: Dr. Orozco Time Spent in preparation of Discharge (in minutes): 45 Hospital Course - Lab Results Lab Results: Micro Results 10/22/17 14:30 Other: Please Indicate Gram Stain - Final 10/22/17 14:30 Other: Please Indicate Body Fluid Culture - Preliminary NO GROWTH AFTER 24 HOURS 10/21/17 16:30 Blood Blood Culture - Preliminary Gram Positive Cocci 10/21/17 16:30 Blood Gram Stain - Final 10/21/17 08:00 Urine Urine Culture - Final No Growth (<1,000 CFU/ML) 10/21/17 17:00 Blood Blood Culture - Preliminary NO GROWTH AFTER 24 HOURS Most Recent Lab Values WBC 9.9 K/uL (4.8-10.8) 10/23/17 07:34 RBC 3.87 Mil/uL (3.80-5.20) 10/23/17 07:34 Hgb 11.5 g/dL (11.0-16.0) 10/23/17 07:34 Hct 33.4 % (34.0-47.0) L 10/23/17 07:34 MCV 86.2 fL (81.0-99.0) 10/23/17 07:34 MCH 29.7 pg (27.0-31.0) 10/23/17 07:34 MCHC 34.5 g/dL (33.0-37.0) 10/23/17 07:34 RDW 14.0 % (11.5-14.5) 10/23/17 07:34 Plt Count 110 K/uL (130-400) L 10/23/17 07:34 MPV 11.1 fL (7.2-11.7) 10/23/17 07:34 Neut % (Auto) 78.0 % (50.0-75.0) H 10/23/17 07:34 Lymph % (Auto) 12.3 % (20.0-40.0) L 10/23/17 07:34 [place] % (Auto) 8.2 % (0.0-10.0) 10/23/17 07:34 Eos % (Auto) 1.4 % (0.0-4.0) 10/23/17 07:34 Baso % (Auto) 0.1 % (0.0-2.0) 10/23/17 07:34 Neut # (Auto) 7.7 K/uL (1.8-7.0) H 10/23/17 07:34 Lymph # (Auto) 1.2 K/uL (1.0-4.3) 10/23/17 07:34 [place] # (Auto) 0.8 K/uL (0.0-0.8) 10/23/17 07:34 Eos # (Auto) 0.1 K/uL (0.0-0.7) 10/23/17 07:34 Baso # (Auto) 0.0 K/uL (0.0-0.2) 10/23/17 07:34 Neutrophils % (Manual) 83 % (50-75) H 10/21/17 14:47 Lymphocytes % (Manual) 9 % (20-40) L 10/21/17 14:47 Monocytes % (Manual) 8 % (0-10) 10/21/17 14:47 Differential Comment 10/22/17 06:57 Platelet Estimate Normal (NORMAL) 10/21/17 14:47 PT 13.3 SECONDS (9.7-12.2) H 10/21/17 16:58 INR 1.2 10/21/17 16:58 pO2 21 mm/Hg (30-55) L 10/21/17 17:04 VBG pH 7.33 (7.32-7.43) 10/21/17 17:04 VBG pCO2 45 mmHg (40-60) 10/21/17 17:04 VBG HCO3 21.2 mmol/L 10/21/17 17:04 VBG Total CO2 25.1 mmol/L (22-28) 10/21/17 17:04 VBG O2 Sat (Calc) 39.7 % (40-65) L 10/21/17 17:04 VBG Base Excess -2.4 mmol/L (0.0-2.0) L 10/21/17 17:04 VBG Potassium 3.5 mmol/L (3.6-5.2) L 10/21/17 17:04 Sodium 138.0 mmol/l (132-148) 10/21/17 17:04 Chloride 106.0 mmol/L (98-107) 10/21/17 17:04 Glucose 95 mg/dl (65-105) 10/21/17 17:04 Lactate 0.9 mmol/L (0.7-2.1) 10/21/17 17:04 Sodium 137 mmol/L (132-148) 10/23/17 07:34 Potassium 3.4 mmol/L (3.6-5.2) L 10/23/17 07:34 Chloride 99 mmol/L (98-107) 10/23/17 07:34 Carbon Dioxide 25 mmol/L (22-30) 10/23/17 07:34 Anion Gap 16 (10-20) 10/23/17 07:34 BUN 3 mg/dL (7-17) L 10/23/17 07:34 Creatinine 0.7 mg/dL (0.7-1.2) 10/23/17 07:34 Est GFR ( Amer) > 60 10/23/17 07:34 Est GFR (Non-Af Amer) > 60 10/23/17 07:34 Random Glucose 91 mg/dL (65-105) 10/23/17 07:34 Calcium 8.5 mg/dl (8.6-10.4) L 10/23/17 07:34 Phosphorus 3.0 mg/dL (2.5-4.5) 10/23/17 07:34 Magnesium 1.8 mg/dL (1.6-2.3) 10/22/17 06:57 Total Bilirubin 1.1 mg/dL (0.2-1.3) 10/23/17 07:34 AST 38 U/L (14-36) H 10/23/17 07:34 ALT 63 U/L (9-52) H D 10/23/17 07:34 Alkaline Phosphatase 45 U/L (38-126) 10/23/17 07:34 Total Protein 6.6 g/dL (6.3-8.3) 10/23/17 07:34 Albumin 3.5 g/dL (3.5-5.0) 10/23/17 07:34 Globulin 3.1 gm/dL (2.2-3.9) 10/23/17 07:34 Albumin/Globulin Ratio 1.1 (1.0-2.1) 10/23/17 07:34 Lipase 41 U/L (23-300) 10/21/17 14:47 Venous Blood Potassium 3.5 mmol/L (3.6-5.2) L 10/21/17 17:04 Urine Color Yellow (YELLOW) 10/22/17 06:16 Urine Clarity Hazy (Clear) 10/22/17 06:16 Urine pH 5.0 (5.0-8.0) 10/22/17 06:16 Ur Specific [place] 1.028 (1.003-1.030) 10/22/17 06:16 Urine Protein Negative mg/dL (NEGATIVE) 10/22/17 06:16 Urine Glucose (UA) Normal mg/dL (Normal) 10/22/17 06:16 Urine Ketones Trace mg/dL (NEGATIVE) 10/22/17 06:16 Urine Blood Trace (NEGATIVE) H 10/22/17 06:16 Urine Nitrate Negative (NEGATIVE) 10/22/17 06:16 Urine Bilirubin Negative (NEGATIVE) 10/22/17 06:16 Urine Urobilinogen Normal mg/dL (0.2-1.0) 10/22/17 06:16 Ur Leukocyte Esterase 3+ [place]/uL (Negative) H 10/22/17 06:16 Urine WBC (Auto) 76 /hpf (0-5) H 10/22/17 06:16 Urine RBC (Auto) 3 /hpf (0-3) 10/22/17 06:16 Ur Squamous Epith Cells 4 /hpf (0-5) 10/22/17 06:16 Urine Bacteria Rare (<OCC) 10/22/17 06:16 Urine HCG, Qual Negative (NEGATIVE) 10/22/17 06:16 - Hospital Course Hospital Course: CC: abdominal arce and vomiting HPI: 22-year-old female, PMHx includes Asthma, presents to the emergency department with complaints of epigastric pain and right-upper quadrant pain associated with nausea and several episodes of nonbloody vomiting. Patient was evaluated in ED last night for same complaint and discharged after having found to have gallstones. Patient states she was not tolerating pain well and has been vomiting since 5 am. Patient denies fever, chills, back pain, or any other associated symptoms. No other complaints at this time. PMH: none PSH: C sections x 2 (one with complication of intra-abdominal bleeding), open appendectomy Family History: cholelithiasis Hospital course: Patient was admitted on 10/21/17 for cholecystitis. Abdominal ultrasound showed 6mm gallbladder wall thickening, trace pericholecystic fluid and cholelithiasis; no choledocholithiasis; mild hepatomegaly CT of the abdomen and pelvis was ordered and showed acute cholecystitis with gas producing organism, mild hepatosplenomegaly and nonspecific periportal edema. General surgery, Dr. Orozco, was consulted. Patient was scheduled for laparoscopic cholecystectomy on 10/22/17. Patient is status post lap cholecystectomy, afebrile , no leukocystosis, and complains of post- op pain/soreness and fullness. Patient is tolerating her diet. Patient is stable for discharge to home. Patient must take new medications as prescribed and must follow up with Dr. Orozco within 1 week of discharge. This is a brief summary of the hospital course. Please see EMR for more details. Discharge Exam - Head Exam Head Exam: ATRAUMATIC, NORMAL INSPECTION, NORMOCEPHALIC - Eye Exam Eye Exam: EOMI, Normal appearance - ENT Exam ENT Exam: Mucous Membranes Moist - Respiratory Exam Respiratory Exam: Clear to PA & Lateral, NORMAL BREATHING PATTERN, UNREMARKABLE. absent: Rales, Rhonchi, Wheezes, Respiratory Distress - Cardiovascular Exam Cardiovascular Exam: REGULAR RHYTHM, +S1, +S2 - GI/Abdominal Exam GI & Abdominal Exam: Normal Bowel Sounds, Soft, Tenderness (s/p lap cholecystectomy). absent: Distended, Firm Additional comments: Dressings clean, dry, intact. - Extremities Exam Extremities exam: normal inspection, pedal pulses present - Neurological Exam Neurological exam: Alert, Oriented x3 - Psychiatric Exam Psychiatric exam: Normal Affect, Normal Mood - Skin Skin Exam: Dry, Intact, Normal Color, Warm Discharge Plan - Discharge Medications Prescriptions: Ciprofloxacin 500 mg PO BID #14 ml Docusate [Colace] 100 mg PO BID #14 cap Ibuprofen [Motrin Tab] 400 mg PO Q6H PRN #28 tab PRN Reason: Pain, Moderate (4-7) - Follow Up Plan Condition: GUARDED Disposition: HOME/ ROUTINE Instructions: Ciprofloxacin (Systemic), Acute Abdomen (Belly Pain), Adult (DC) , Gallstones (DC), Docusate, Ibuprofen Additional Instructions: Patient is stable for discharge to home. Patient must continue home medications. Patient must take new medications as prescribed: 1. Ciprofloxacin 500mg PO BID- take 1 tablet twice a day (1 in AM, 1 in PM) for 7 days. 2. Colace 100mg PO BID- take 1 tablet twice a day (1 in AM, 1 in PM) for constipation. 3. Ibuprofen 400mg PO [id number] PRN for pain- take every 6 hours as needed for pain. Patient must follow up with their surgeon, Dr. Orozco, within 1 week of discharge. Patient must follow up with their PMD within 1-2 weeks discharge. If symptoms worsen or reoccur, patient should return to the ED. Referrals: Jose Schumacher Jr., MD [Medical Doctor] -
--- NOTE | 2017-10-23 15:01 | RAD ---
PROCEDURE: Intraoperative fluoroscopy HISTORY: CHOLECYSTITIS COMPARISON: Not available TECHNIQUE: Intraoperative fluoroscopy was provided for intraoperative cholangiography. Total time of fluoroscopy was 34.0 seconds. FINDINGS: Multiple fluoroscopic spot films are submitted from an intraoperative cholangiogram. No filling defect is identified within the biliary tree. There is no biliary dilatation seen. IMPRESSION: Fluoroscopy provided.
[2017-10-23 16:12] VITALS: BP 116/73; PULSE 96; TEMP 99.1; O2SAT 97
--- NOTE | 2017-10-23 22:22 | CARD ---
APPROVED REPORT EKG Measurement Heart [id number] <Conclusion> Normal sinus rhythm with sinus arrhythmia Normal ECG
== END 2017-10-23 16:45 | disposition home or self-care (01) | DRG 494 ==
LOC: C.ER 13:42 → C.3T 16:39 → C.9E 16:39
PROVIDERS: ADMIT Internal Medicine; ATTEND Internal Medicine
PROC: BF03YZZ Plain Radiography of Gallbladder and Bile Ducts using Other Contrast (ICD-10-PCS; 2017-10-22)
PROC: 0FT44ZZ Resection of Gallbladder, Percutaneous Endoscopic Approach (ICD-10-PCS; principal; 2017-10-22 14:15)
DX: K80.12 Calculus of gallbladder with acute and chronic cholecystitis without obstruction (principal); J45.909 Unspecified asthma, uncomplicated; Z87.01 Personal history of pneumonia (recurrent)

== ENCOUNTER 2017-12-30 11:47 | Emergency (ER) | payer MEDICAID ==
--- NOTE | 2017-12-30 12:36 | C.PDOC ---
History Of Present Illness 22-year-old female presents to the ED for evaluation of left-sided chest pain that radiates down her left arm which began today. Patient reports a sharp pain in her left arm. 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 She denies fever, chills, nausea, vomiting, extremity numbness/ weakness. Time Seen by Provider: 12/30/17 11:51 Chief Complaint (Nursing): Chest Pain History Per: Patient History/Exam Limitations: no limitations Onset/Duration Of Symptoms: Hrs Current Symptoms Are (Timing): Still Present (+) Quality: Sharp, "Pain" Additional History Per: Patient Past Medical History Reviewed: Historical Data, Nursing Documentation, Vital Signs Vital Signs: Last Vital Signs Temp 99.2 F 12/30/17 14:02 Pulse 71 12/30/17 14:02 Resp 16 12/30/17 14:02 BP 115/72 12/30/17 14:02 Pulse Ox 100 12/30/17 14:02 - Medical History PMH: Anemia, Asthma, Pneumonia Surgical History: Appendectomy - [facility] Procedures RADIOGRAPHY OF GALLBLADDER & BILE DUCT USING OTH CONTRAST (10/21/17) RESECTION OF GALLBLADDER, PERCUTANEOUS ENDOSCOPIC APPROACH (10/21/17) Family History: States: Unknown Family Hx - Social History Hx Alcohol Use: No Hx Substance Use: No - Immunization History Hx Tetanus Toxoid Vaccination: Yes Hx Influenza Vaccination: Yes Hx Pneumococcal Vaccination: Yes Review Of Systems Constitutional: Negative for: Fever, Chills Cardiovascular: Positive for: Chest Pain (left-sided ) Gastrointestinal: Negative for: Nausea, Vomiting Musculoskeletal: Positive for: Arm Pain (left) Neurological: Negative for: Weakness, Numbness Physical Exam - Physical Exam Appears: Non-toxic, No Acute Distress Skin: Normal Color, Warm, Dry Head: Atraumatic, Normacephalic Eye(s): bilateral: Normal Inspection Oral Mucosa: Moist Neck: Supple Chest: Symmetrical, No Deformity, No Tenderness Cardiovascular: Rhythm Regular, No Murmur Respiratory: Normal Breath Sounds, No Rales, No Rhonchi, No Wheezing Extremity: Normal ROM, No Tenderness, Capillary Refill (less than 2 seconds ) Neurological/Psych: Oriented x3, Normal Speech, Normal Cognition ED Course And Treatment - Laboratory Results Result Diagrams: 12/30/17 12:36 12/30/17 12:36 Lab Interpretation: Normal Urine POC: Negative ECG: Interpreted By Me ECG Rhythm: Sinus Rhythm ECG Interpretation: Normal Rate From EC O2 Sat by Pulse Oximetry: 98 Pulse Ox Interpretation: Normal - Radiology CXR: Interpreted by Me CXR Interpretation: Yes: No Acute Disease Progress Note: Bloodwork, urinalysis, CXR, EKG ordered and reviewed. Toradol IVP administered. On re-evaluation lungs clear, neuro intact. Patient advised to follow up with PMD Reassessment Condition: Improved Disposition Counseled Patient/Family Regarding: Studies Performed, Diagnosis, Need For Followup, Rx Given - Disposition Referrals: [facility] [Outside] [facility] [Outside] Disposition: HOME/ ROUTINE Disposition Time: 14:20 Condition: STABLE Additional Instructions: Return to ED if any increase symptoms Prescriptions: Naproxen [Naprosyn] 1 tab PO BID PRN #25 tab PRN Reason: Pain Instructions: Costochondritis Forms: [facility] (Bengali) - POA Present On Arrival: None - Clinical Impression Clinical Impression: Chest wall pain - 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 - Scribe Statement The provider has reviewed the documentation as recorded by the Scribe (Donna Dubon) All medical record entries made by the Scribe were at my direction and personally dictated by me. I have reviewed the chart and agree that the record accurately reflects my personal performance of the history, physical exam, medical decision making, and the department course for this patient. I have also personally directed, reviewed, and agree with the discharge instructions and disposition.
[2017-12-30 12:41] LABS: BASO % 0.4 % (0.0-2.0); EOS # 0.3 K/uL (0.0-0.7); EOS % 4.4 % (0.0-4.0); HEMOGLOBIN 12.3 g/dL (11.0-16.0); LYMPH # 1.9 K/uL (1.0-4.3); MEAN CORPUSCULAR HEMOGLOBIN 29.8 pg (27.0-31.0); MEAN CORPUSCULAR HGB CONC 34.6 g/dL (33.0-37.0); MEAN PLATELET VOLUME 10.6 fL (7.2-11.7); MONO # 0.4 K/uL (0.0-0.8); MONO % 6.3 % (0.0-10.0); NEUT # 3.2 K/uL (1.8-7.0); NEUT % 55.9 % (50.0-75.0); NRBC % 0.1 % (0.0-2.0); RBC 4.13 Mil/uL (3.80-5.20); RED CELL DISTRIBUTION WIDTH 14.2 % (11.5-14.5); WHITE BLOOD COUNT 5.8 K/uL (4.8-10.8)
[2017-12-30 12:51] LABS: SQUAMOUS EPITHIAL < 1 /hpf (0-5); URINE BILIRUBIN NEGATIVE (NEGATIVE); URINE BLOOD NEGATIVE (NEGATIVE); URINE CLARITY Clear (Clear); URINE COLOR Colorless (YELLOW); URINE GLUCOSE (UA) NORMAL (Normal); URINE LEUKOCYTE ESTERASE NEG Leu/uL (Negative); URINE PROTEIN NEGATIVE (NEGATIVE); URINE UROBILINOGEN NORMAL mg/dL (0.2-1.0)
[2017-12-30 12:52] LABS: ALB/GLOB RATIO 1.3 (1.0-2.1); ALBUMIN 4.6 g/dL (3.5-5.0); ALT/SGPT 27 U/L (9-52); AST/SGOT 19 U/L (14-36); BLOOD UREA NITROGEN 12 mg/dL (7-17); CALCIUM 9.3 mg/dl (8.6-10.4); GFR AFRICAN-AMERICAN > 60; GFR NON-AFRICAN AMERICAN > 60
--- NOTE | 2017-12-30 13:15 | RAD ---
HISTORY: COMPARISON: 10/21/2017. TECHNIQUE: Chest PA and lateral FINDINGS: LINES AND TUBES: None. LUNG AND PLEURA: The lungs are well inflated and clear. No pleural effusion or pneumothorax. HEART AND MEDIASTINUM: The heart is not enlarged. The hilar and mediastinal contours are within normal limits. SKELETAL STRUCTURES: The bony structures are within normal limits for the patient's age. VISUALIZED UPPER ABDOMEN: Normal. OTHER FINDINGS: None. IMPRESSION: No active pulmonary disease.
[2017-12-30 14:03] VITALS: BP 115/72; PULSE 71; RESP 16; TEMP 99.2
[2017-12-30 14:59] VITALS: O2SAT 98
--- NOTE | 2017-12-31 23:53 | CARD ---
APPROVED REPORT EKG Measurement Heart [id number] <Conclusion> Normal sinus rhythm Normal ECG
== END 2017-12-30 14:36 | disposition home or self-care (01) ==
LOC: C.ER 11:47
DX: R07.89 Other chest pain (principal)
CPT/HCPCS: 71046; 80053; 81001; 84484; 85025; 93005; 96374; 99285; J1885